=== PATIENT | male | born 1965 | race Caucasian/White ===

== ENCOUNTER → 2016-11-05 | Outpatient (CLI) | payer BC, OTHER | END | disposition home or self-care (01) | LOC: GMAM 10:49 | PROVIDERS: ATTEND Family Medicine | DX: Z12.5 Encounter for screening for malignant neoplasm of prostate (principal); Z00.00 Encounter for general adult medical examination without abnormal findings ==

== ENCOUNTER → 2017-07-09 | Outpatient (CLI) | payer BC | LOC: GMAM 10:28 | PROVIDERS: ATTEND Family Medicine | DX: E29.8 Other testicular dysfunction (principal); M10.9 Gout, unspecified ==

== ENCOUNTER 2017-09-01 19:49 | Emergency (ER) | payer BC ==
[2017-09-01 20:02] VITALS: TEMP 98.7; O2SAT 98
--- NOTE | 2017-09-01 20:11 | ED.PDOC ---
History of Present Illness - General Chief Complaint: Abdominal Pain Stated Complaint: RLQ pain since 1000 Time Seen by Provider: 09/01/17 20:08 Information Source: patient, RN notes reviewed Additional Information: 51 YEAR OLD PRESENTS WITH PAIN IN THE RSIDE OF THE ABDOMEN SINCE THIS MORNING ASSOCIATED WITH NAUSEA NO FEVER CHILLS NO DYSURIA NO HEMATURIA NO BACK PAIN - History of Present Illness Abdominal Pain Onset Location: RUQ Pain Radiation: no radiation Quality: severe, stabbing Timing/Duration: 7-24 hours, intermittent Improving Factors: nothing Worsening Factors: nothing Associated Symptoms: diarrhea, nausea/vomiting Review of Systems - Review of Systems Constitutional: States: no symptoms reported EENTM: States: no symptoms reported Respiratory: States: no symptoms reported Cardiology: States: no symptoms reported Gastrointestinal/Abdominal: States: see HPI Genitourinary: States: no symptoms reported Musculoskeletal: States: no symptoms reported Skin: States: no symptoms reported Neurological: States: no symptoms reported Endocrine: States: no symptoms reported Hematologic/Lymphatic: States: no symptoms reported Past Medical History (General) - Patient Medical History Hx Seizures: No Hx Stroke: No Hx Dementia: No Hx Asthma: Yes Hx of COPD: No Hx Cardiac Disorders: No Hx Congestive Heart Failure: No Hx Pacemaker: No Hx Hypertension: Yes Hx Thyroid Disease: No Hx Diabetes: No Hx Gastroesophageal Reflux: Yes Hx Renal Disease: No Hx Cancer: No Hx of HIV: No Hx Hepatitis C: No Hx MRSA: No Surgical History: no surgical history - Vaccination History Hx Tetanus, Diphtheria Vaccination: No Hx Influenza Vaccination: No - Social History Hx Alcohol Use: Yes - monthly Family Medical History - Family History Mother Family History: Unknown Physical Exam - Physical Exam General Appearance: Alert, Comfortable Eyes, Ears, Nose, Throat Exam: PERRL/EOMI, normal ENT inspection, TMs normal, pharynx normal Neck: non-tender, full range of motion, supple Respiratory: chest non-tender, lungs clear, normal breath sounds Cardiovascular/Chest: normal peripheral pulses, regular rate, rhythm, no edema, no gallop, no JVD Gastrointestinal/Abdominal: tenderness, other - gross obese abd difficult to feel anything deep tender on the right side Back Exam: no CVA tenderness Extremity: normal range of motion, non-tender, normal inspection Neurologic: level vial marker II-XII nml as tested, no motor/sensory deficits, alert, normal mood/affect, oriented x 3 Skin Exam: normal color, warm/dry Lymphatic: no adenopathy Progress - Results/Orders Results/Orders: Laboratory Tests 09/01/17 09/01/17 09/01/17 20:12 20:12 20:25 WBC 11.0 H RBC 4.57 L Hgb 12.4 L Hct 38.1 L MCV 83.5 MCH 27.1 MCHC 32.4 L RDW 14.4 Plt Count 291 MPV 8.1 Absolute Neuts (auto) 9.20 H Absolute Lymphs (auto) 1.00 Absolute Monos (auto) 0.60 Absolute Eos (auto) 0.10 Absolute Basos (auto) 0.00 Neutrophils % 83.9 H Lymphocytes % 9.1 L Monocytes % 5.8 Eosinophils % 0.8 L Basophils % 0.4 Sodium 138 Potassium 3.9 Chloride 105 Carbon Dioxide 25 Anion Gap 11.9 L BUN 15 Creatinine 1.16 BUN/Creatinine Ratio 12.9 Random Glucose 137 H Serum Osmolality 278.6 Calcium 8.9 Total Bilirubin 0.3 AST 31 ALT 45 Alkaline Phosphatase 72 Serum Total Protein 7.3 Albumin 3.7 Globulin 3.6 H Albumin/Globulin Ratio 1.0 L Amylase 23 L Lipase 18 L Urine Color Yellow Urine Appearance Clear Urine pH 5.5 Ur Specific [place] >= 1.030 Urine Protein 30 Urine Glucose (UA) Negative Urine Ketones 15 H Urine Blood Moderate H Urine Nitrite Negative Urine Bilirubin Negative Urine Urobilinogen 0.2 Ur Leukocyte Esterase Negative Urine RBC >50 H Urine WBC 0-1 Ur Epithelial Cells 0-[address] B[address] ABD 6 MM STONE IN THE PROXIMAL URETER CAUSING MILD HYDRONEPHROSIS Departure - Departure Clinical Impression: Abdominal pain, Ureteric calculus Time of Disposition: 21:18 Disposition: Discharge to Home or Self Care Condition: Good Departure Forms: ED Discharge - Pt. Copy, Patient Portal Self Enrollment Instructions: DI for Abdominal Pain-Adult Referrals: Jacques Whipple MD [Primary Care Provider] - 1-2 Weeks Prescriptions: Ketorolac Tromethamine [Toradol Tabs] 10 mg PO Q8HRS #15 tab Tamsulosin HCl [Flomax] 0.4 mg PO Q24HR #10 cap Promethazine Tab [Phenergan Tablet] 25 mg PO .Q4H #20 tab Home Medications: Ambulatory Orders Aspirin [Aspirin Adult Low Dose] 81 mg PO DAILY 09/01/17 Atorvastatin Calcium [Lipitor] 10 mg PO DAILY 09/01/17 Eszopiclone [Lunesta] 1 mg PO BEDTIME 09/01/17 Ferrous Sulfate [Iron] 325 mg PO DAILY 09/01/17 Ketorolac Tromethamine [Toradol Tabs] 10 mg PO Q8HRS #15 tab 09/01/17 Loperamide Cap [Imodium Cap] 2 mg PO PRN 09/01/17 Pantoprazole Tablet [Protonix] 40 mg PO ACBK 09/01/17 Probiotic Product [Probiotic] 1 tab PO DAILY 09/01/17 Promethazine Tab [Phenergan Tablet] 25 mg PO .Q4H #20 tab 09/01/17 Tamsulosin HCl [Flomax] 0.4 mg PO Q24HR #10 cap 09/01/17 Vortioxetine HBr [Brintellix] 10 mg PO DAILY 09/01/17 Additional Instructions: FAMILY WOULD LIKE TO FOLLOW UP WITH DR REYNOLDS ADVISED TO GIVE HIS OFFICE A CALL TOMORROW AM
[2017-09-01] MEDS ORDERED: KETOROLAC TROMETHAMINE INJ 30 MG/ML VIAL IV ONE (20:12)
[2017-09-01] MEDS ORDERED: SODIUM CHLORIDE 0.9% 1000ML 1,000 ML IVS ONE (20:13)
[2017-09-01 21:20] VITALS: BP 155/88
--- NOTE | 2017-09-01 21:21 | CT ---
EXAM DESCRIPTION: Abdomen/Pelvis w/Contrast CLINICAL HISTORY:51 years Male, abd pain Comparison: 04/27/2010 TECHNIQUE: Contiguous axial images of the abdomen and pelvis were obtained after administration of IV contrast followed by reconstruction images. This exam was performed according to our departmental dose-optimization program, which includes automated exposure control, adjustment of the mA and/or kV according to patient size and/or use of iterative reconstruction technique. Coronal and sagittal reconstructed images are also reviewed. FINDINGS: Lung bases: Lung bases are clear. Liver: No focal lesion Gallbladder/Bile ducts: Contracted gallbladder however intraluminal hyperdense material suggesting small gallstones/sludge. No intra or extrahepatic biliary ductal dilatation. Spleen: Within normal limits Pancreas: Within normal limits Adrenal glands: Within normal limits Kidneys: Right proximal ureteric stone measuring 6 mm with associated mild proximal hydronephrosis and right perinephric stranding. Additional 6 mm stone is seen with in the anterior-inferior pole renal calyx. Left kidney within normal limits. Bladder: Partially contracted without significant findings. No stone in the region of the right UVJ. GI tract: Moderate size hiatal hernia. No evidence of obstruction or active inflammatory process. Descending and sigmoid colonic diverticulosis. Appendix not identified. Prostate gland: Within normal limits Vascular structures: Within normal limits Free fluid: No free fluid. Lymph nodes: Nonspecific enlarged right mesenteric lymph nodes largest 1.8 cm. Additional prominent right inguinal lymph node (1.2 cm). These show interval enlargement when compared to previous study back in 04/27/2010. Soft tissues: Within normal limits Bones: No acute osseous finding Police Records Clerk view shows no additional findings. IMPRESSION: 1. Obstructing right proximal ureterolithiasis (6 mm) as above. Underlying right nephrolithiasis. 2. Moderate size hiatal hernia. 3. Cholelithiasis 4. Nonspecific enlarged right mesenteric and right inguinal lymph nodes. Although these could be reactive in etiology, a follow-up contrast-enhanced CT abdomen pelvis can be considered to assess stability as underlying malignancy is in the differential diagnosis. 5. Colonic diverticulosis. Findings were discussed by Dr. Roxy Fountain via telephone with Dr. Per Reilly on 09/01/2017 9:11 PM CDT. Electronically signed by: Columba Mccloud MD 09/01/2017 9:19 PM CDT
[2017-09-01] MEDS ORDERED: HYDROCOD/APAP 7.5/325 (ER DISP) #3 TAB PO ONE (21:33)
== END 2017-09-01 21:49 | disposition home or self-care (01) ==
LOC: ER 19:49
DX: N13.2 Hydronephrosis with renal and ureteral calculous obstruction (principal); I10 Essential (primary) hypertension; K21.9 Gastro-esophageal reflux disease without esophagitis; J45.909 Unspecified asthma, uncomplicated
CPT/HCPCS: 36415; 74177; 80053; 81001; 82150; 83690; 85025; J1885; J7030

== ENCOUNTER → 2017-10-16 | Outpatient (CLI) | payer BC ==
--- NOTE | 2017-10-16 11:03 | CT ---
EXAM DESCRIPTION: Abdomen/Pelvis w/wo Contrast: Computed Tomography. CLINICAL HISTORY: RIGHT RENAL STONE. Abdominal hernia. Right abdominal pain. COMPARISON: CT scan abdomen and pelvis without IV contrast 09/01/2017. TECHNIQUE: Spiral-axial scans at 5.0 mm intervals through the abdomen and pelvis before and after standard dose nonionic IV contrast. No oral contrast. Coronal and sagittal 2.0 mm reconstructions. 5 mm Delayed helical-axial scans, liver through the pubic symphysis. No adverse reactions. Total Exam DLP 4529.98 mGy - cm. This exam was performed according to our departmental CT dose-optimization program which includes automated exposure control, adjustment of the mA and/or kV according to patient size and/or use of iterative reconstruction technique; to reduce radiation dose to as low as reasonably achievable (ALARA). FINDINGS: Kidneys and Ureters: 6.5 mm stone which was visualized in the proximal right ureter just distal to the renal pelvis has migrated slightly more distally, now approximately 4 cm from the renal pelvis. Hydroureter and periureteral edema is visualized along with dilation of the right renal pelvis. Moderate right hydronephrosis. Stable 7.5 mm stone in the inferior collecting system of the right kidney. No other stones in the right kidney or right ureter. Right perinephric edema has resolved since the prior study. No radiodense stones in the left kidney, or ureter. No hydronephrosis or hydroureter. Pelvic Organs: No radiodense stones in the urinary bladder. Bilateral contrast ureteral jets are noted. Prostate gland not enlarged. No fluid in the anterior peritoneal reflection. Lung bases and pleura: Minimal pleural thickening left base. Small coronary artery calcification, limited view of the heart. Liver, Stomach, Spleen, Adrenal Glands: Moderate paraesophageal gastric hernia. Stable since the prior study. Solid organs are unremarkable. Pancreas, Gallbladder, Ducts: Radiodense sludge or gravel-like stones in the dependent portion of the gallbladder. Stable since the prior study. Duct and pancreas unremarkable. Mesentery: No free air or fluid. Aorta: No significant amount of contrast seen in the aorta. Normal outer caliber. Small Bowel: Normal caliber. Terminal Ileum/Cecum: Normal caliber. Possible appendiceal stump. Normal density of the surrounding fat. Colon: Diverticula of the distal colon. No obstruction or significant air-fluid levels or distention. No complications. Spine and Bony Pelvis: Minimal scoliosis of the lumbar spine. Abdominal Wall/Back Soft Tissues: Small bilateral fatty inguinal hernias not containing bowel. Diastases of the umbilicus not containing bowel. IMPRESSION: 1. Significant obstruction of the proximal right ureter by 6.5 mm radiodense stone which has moved approximately 4 cm distally since the prior study in August 2017. Moderate hydronephrosis. Only minimal contrast in the collecting system on the delayed images. Stable 7.5 mm stone in the inferior collecting system. Also minimal contrast in the urinary bladder on the delayed images. Left kidney/ureter unremarkable. 2. Remainder of examination is unremarkable. Stable paraesophageal gastric hernia and radiodense sludge or gallstone gravel in the dependent gallbladder. Minimal diverticulosis of the distal colon. Bilateral small fatty inguinal hernias and fatty diastases at the umbilicus also stable. Electronically signed by: Jd Connell MD 10/16/2017 11:02 AM CDT
== END ==
LOC: CT 08:14
PROVIDERS: ATTEND Family Medicine
DX: N20.0 Calculus of kidney (principal)

== ENCOUNTER 2017-12-04 17:52 | Emergency (ER) | payer BC ==
--- NOTE | 2017-12-04 18:14 | ED.PDOC ---
History of Present Illness - General Chief Complaint: Fever Stated Complaint: Fever, aching, urinary frequency Time Seen by Provider: 12/04/17 18:00 Source: patient - History of Present Illness Initial Comments: Blanco Martinez 52y/o male with history of recent right ureteral calculus extraction by stent ,lithotripsy,and basket extraction and had right ureteral stent for 6 days taken out 02 Dec [address] Lilly at [facility] came to ER with fever ,body aches since yesterday.Initially seen at primary Mds office but advised to come to hospital.Juan C cough,nasal congestion nausea / vomiting,diarrhea,abdominal pains but with urinary frequency,no dysuria or hematuria Timing/Duration: other - 2 days Severity: moderate Improving Factors: nothing Worsening Factors: nothing Associated Symptoms: fever/chills Allergies/Adverse Reactions: Allergies NO KNOWN ALLERGY Allergy (Verified 09/01/17 20:02) Home Medications: Ambulatory Orders Pantoprazole Tablet [Protonix] 40 mg PO ACBK 09/01/17 levoFLOXacin [Levaquin] 500 mg PO DAILY 10 Days #10 tab 12/04/17 Review of Systems - Review of Systems Constitutional: States: fever EENTM: States: no symptoms reported Respiratory: States: no symptoms reported Cardiology: States: no symptoms reported Gastrointestinal/Abdominal: States: no symptoms reported Genitourinary: States: see HPI Musculoskeletal: States: no symptoms reported Skin: States: no symptoms reported Neurological: States: no symptoms reported Past Medical History (General) - Patient Medical History Hx Seizures: No Hx Stroke: No Hx Dementia: No Hx Asthma: Yes Hx of COPD: No Hx Cardiac Disorders: No Hx Congestive Heart Failure: No Hx Pacemaker: No Hx Hypertension: Yes Hx Thyroid Disease: No Hx Diabetes: No Hx Gastroesophageal Reflux: Yes Hx Renal Disease: No Hx Cancer: No Hx of HIV: No Hx Hepatitis C: No Hx MRSA: No Surgical History: other - lithotripsy,ureteral stent - Vaccination History Hx Tetanus, Diphtheria Vaccination: No Hx Influenza Vaccination: Yes - 2017 Hx Pneumococcal Vaccination: Yes - 2017 - Social History Hx Tobacco Use: No Hx Alcohol Use: Yes - social use Family Medical History - Family History Mother Family History: Unknown Hx Cardiac Disease: Yes - mom Hx Family;Other: kidney stone- brother Physical Exam - Physical Exam General Appearance: Alert, Comfortable, No apparent distress Eye Exam: bilateral normal Ears, Nose, Throat: hearing grossly normal, normal ENT inspection, normal pharynx Neck: non-tender, full range of motion, supple Respiratory: chest non-tender, lungs clear, normal breath sounds, no respiratory distress Cardiovascular/Chest: normal peripheral pulses, regular rate, rhythm, no murmur Peripheral Pulses: radial,right: 2+, radial,left: 2+ Gastrointestinal/Abdominal: normal bowel sounds, non tender, soft Back Exam: no CVA tenderness, no vertebral tenderness Extremity: normal range of motion, non-tender Neurologic: alert, oriented x 3 Skin Exam: normal color, warm/dry Progress - Progress Progress: 12/04/17 20:29 Vital Signs - 8 hr 12/04/17 18:00 Temperature 101.2 F H Pulse Rate [ 98 H Right Radial] Respiratory 22 Rate Blood Pressure 131/81 [Right Arm] O2 Sat by Pulse 98 Oximetry 12/04/17 22:04 Temperature-99.3 - Results/Orders Results/Orders: Laboratory Tests 12/04/17 12/04/17 12/04/17 18:34 18:34 18:34 WBC 8.9 RBC 4.90 Hgb 12.4 L Hct 39.3 L MCV 80.1 MCH 25.3 L MCHC 31.5 L RDW 16.2 H Plt Count 272 MPV 9.1 Absolute Neuts (auto) 6.90 H Absolute Lymphs (auto) 1.10 Absolute Monos (auto) 0.80 Absolute Eos (auto) 0.00 Absolute Basos (auto) 0.00 Neutrophils % 77.0 Lymphocytes % 12.7 L Monocytes % 9.5 H Eosinophils % 0.2 L Basophils % 0.6 Sodium 134 L Potassium 3.8 Chloride 99 L Carbon Dioxide 26 Anion Gap 12.8 BUN 12 Creatinine 0.81 BUN/Creatinine Ratio 14.8 Random Glucose 106 H Serum Osmolality 268.4 L Lactic Acid 1.2 Calcium 9.1 Total Bilirubin 0.8 AST 17 ALT 18 Alkaline Phosphatase 77 B-Natriuretic Peptide Serum Total Protein 8.0 Albumin 4.0 Globulin 4.0 H Albumin/Globulin Ratio 1.0 L Urine Color Urine Appearance Urine pH Ur Specific [place] Urine Protein Urine Glucose (UA) Urine Ketones Urine Blood Urine Nitrite Urine Bilirubin Urine Urobilinogen Ur Leukocyte Esterase Urine RBC Urine WBC Ur Epithelial Cells Urine Bacteria 12/04/17 12/04/17 19:00 19:14 WBC RBC Hgb Hct MCV MCH MCHC RDW Plt Count MPV Absolute Neuts (auto) Absolute Lymphs (auto) Absolute Monos (auto) Absolute Eos (auto) Absolute Basos (auto) Neutrophils % Lymphocytes % Monocytes % Eosinophils % Basophils % Sodium Potassium Chloride Carbon Dioxide Anion Gap BUN Creatinine BUN/Creatinine Ratio Random Glucose Serum Osmolality Lactic Acid Calcium Total Bilirubin AST ALT Alkaline Phosphatase B-Natriuretic Peptide 90.3 Serum Total Protein Albumin Globulin Albumin/Globulin Ratio Urine Color Green Urine Appearance Clear Urine pH 6.0 Ur Specific [place] 1.020 Urine Protein 30 Urine Glucose (UA) Negative Urine Ketones Negative Urine Blood Small H Urine Nitrite Negative Urine Bilirubin Small H Urine Urobilinogen 0.2 Ur Leukocyte Esterase Trace H Urine RBC 1-3 Urine WBC 20-30 H Ur Epithelial Cells 1-3 Urine Bacteria Rare Discuss all test result with patient no remaining right ureteral stone but has right kidney stone lower pole with mild pyelonephritis ;discuss oupatient treatment with oral antibiotics since no nausea/vomiting agreeable with the plan and advise to come back if symptoms worsen or unable to tolerate oral antibiotics - EKG/XRAY/CT XRAY: chest - possible consolidation lung bases;not showing on CT abd/pelvis w/ c showed scarring/atelectasis CT Ordered: Yes - abd/pelvis-mild perinephric stranding right Departure - Departure Clinical Impression: Pyelonephritis, unspecified, Right nephrolithiasis Time of Disposition: 22:06 Disposition: Discharge to Home or Self Care Condition: Fair Departure Forms: ED Discharge - Pt. Copy, Patient Portal Self Enrollment Instructions: Kidney Infection, Kidney Infection (DC) Diet: other - drink extra fluids Referrals: Jacques Whipple MD [Primary Care Provider] - 1-2 Weeks Prescriptions: levoFLOXacin [Levaquin] 500 mg PO DAILY 10 Days #10 tab Home Medications: Ambulatory Orders Pantoprazole Tablet [Protonix] 40 mg PO ACBK 09/01/17 levoFLOXacin [Levaquin] 500 mg PO DAILY 10 Days #10 tab 12/04/17 Additional Instructions: Return to ER as needed;Tylenol 500 mg every 6 hours for fever
[2017-12-04] MEDS ORDERED: LACTATED RINGERS 1,000 ML IVS ONE (18:15)
--- NOTE | 2017-12-04 18:41 | RAD ---
EXAM DESCRIPTION: Chest,1 View CLINICAL HISTORY: fever COMPARISON: None. FINDINGS: There is mild pulmonary edema. Cardiac silhouette is within normal limits. There is possible consolidation at the medial lung bases. Detail is limited. IMPRESSION: Possible consolidation at the lung bases. Mild pulmonary edema. Electronically signed by: Jd Parekh 12/04/2017 6:40 PM CDT
[2017-12-04] MEDS ORDERED: levoFLOXacin 750MG IV 750 MG in PREMIX BAG 1 BAG IVPB ONE (19:47)
--- NOTE | 2017-12-04 20:22 | CT ---
EXAM DESCRIPTION: Abdoment/Pelvis w/o Contrast CLINICAL HISTORY: 52 years Male s/p ureteral stent, fever ,hx -rt. ureteral calculus COMPARISON: 10/16/2017. TECHNIQUE: Contiguous axial images obtained through the abdomen and pelvis without IV contrast. Reformatted images obtained. This exam was performed according to our department optimization program which includes automated exposure control, adjustment of the mA and/or kv according to patient size and/or use of iterative reconstruction technique. FINDINGS: Moderate to large hiatal hernia. Minimal scarring/atelectasis in the lingula. The liver is enlarged measuring 21 cm in length. The spleen and pancreas appear unremarkable. No adrenal masses. Nonobstructing calculus in the lower right kidney. The previously visualized hydronephrosis with a calculus in the right upper ureter is no longer identified. There is minimal right perinephric stranding which appears slightly increased compared to the previous study and the possibility of pyelonephritis is not excluded on this study. Clinical and laboratory correlation recommended. The left kidney appears unremarkable. Gallstones in the gallbladder. No aneurysmal dilatation of the aorta. No bowel obstruction. The appendix appears unremarkable. Colonic diverticulosis. No free pelvic fluid. Slightly prominent lymph node in the right upper groin which appeared similar on the previous study. Degenerative changes in the spine. IMPRESSION: The previously visualized right-sided hydronephrosis with a calculus in the right upper ureter is no longer identified. There is minimal right perinephric stranding which appears slightly increased compared to the previous study and clinical and laboratory correlation is recommended to exclude the possibility of pyelonephritis. Nonobstructing calculus in the lower right kidney. Cholelithiasis. See above for other findings. Electronically signed by: Yosvany Ann MD 12/04/2017 8:20 PM CDT
[2017-12-04] MEDS ORDERED: KETOROLAC TROMETHAMINE INJ 30 MG/ML VIAL IV ONE (20:31)
[2017-12-04] MEDS ORDERED: ACETAMINOPHEN 325 MG TAB PO ONE (20:34)
[2017-12-04] MEDS ORDERED: ACETAMINOPHEN 325 MG TAB ONE (20:35)
[2017-12-04 22:48] VITALS: BP 124/82; TEMP 100.9; O2SAT 100
== END 2017-12-04 22:20 | disposition home or self-care (01) ==
LOC: ER 17:52
DX: N12 Tubulo-interstitial nephritis, not specified as acute or chronic (principal); N13.2 Hydronephrosis with renal and ureteral calculous obstruction; K80.20 Calculus of gallbladder without cholecystitis without obstruction; K57.30 Diverticulosis of large intestine without perforation or abscess without bleeding; K44.9 Diaphragmatic hernia without obstruction or gangrene; K21.9 Gastro-esophageal reflux disease without esophagitis; J45.909 Unspecified asthma, uncomplicated; I10 Essential (primary) hypertension; Z79.899 Other long term (current) drug therapy
CPT/HCPCS: 36415; 71045; 74176; 80053; 81001; 83605; 83880; 85025; 87086; J1885; J1956; J7120

== ENCOUNTER → 2017-12-04 | Outpatient (CLI) | payer BC | LOC: GMATM 17:18 | PROVIDERS: ATTEND Nurse Practitioner Family | DX: R30.0 Dysuria (principal) ==

== ENCOUNTER → 2018-03-21 | Outpatient (CLI) | payer BC | LOC: GMAM 10:49 | PROVIDERS: ATTEND Family Medicine | DX: M10.9 Gout, unspecified (principal); Z12.5 Encounter for screening for malignant neoplasm of prostate ==

== ENCOUNTER → 2018-03-25 | Outpatient (CLI) | payer BC | LOC: GMAM 15:08 | PROVIDERS: ATTEND Family Medicine | DX: D64.9 Anemia, unspecified (principal) ==

== ENCOUNTER → 2018-04-23 | Outpatient (CLI) | payer BC | LOC: GMAM 10:39 | PROVIDERS: ATTEND Family Medicine | DX: D64.9 Anemia, unspecified (principal) ==

== ENCOUNTER → 2018-08-08 | Outpatient (CLI) | payer BC | DX: Z01.818 Encounter for other preprocedural examination (principal) ==

== ENCOUNTER 2018-08-13 05:37 | Day surgery (SDC) | payer BC ==
[2018-08-13] MEDS ORDERED: ceFAZolin SODIUM 1 GM VIAL ONE ×3 (07:27→10:52)
[2018-08-13] MEDS ORDERED: LACTATED RINGERS 1,000 ML ONE (07:27)
[2018-08-13] MEDS ORDERED: SODIUM CHL 0.9% 100ML MINI-BAG 100 ML IVPB ONE (07:27)
[2018-08-13] MEDS ORDERED: VANCOMYCIN HCL INJ 1,000 MG VIAL IVPB ONE (09:15)
[2018-08-13] MEDS ORDERED: BUPIVACAINE LIPOSOME 13.3 MG/ML VIAL INJ ONE (09:15)
[2018-08-13] MEDS ORDERED: LACTATED RINGERS 1,000 ML IVS ONE (09:45)
[2018-08-13] MEDS ORDERED: DEXAMETHASONE INJ 10 MG/ML VIAL IV ONE (10:00)
[2018-08-13] MEDS ORDERED: ONDANSETRON INJ 4 MG/2 ML VIAL IV ONE ×2 (10:00)
[2018-08-13] MEDS ORDERED: LIDOCAINE 1% 10 ML VIAL INJ ONE (10:00)
[2018-08-13] MEDS ORDERED: KETOROLAC TROMETHAMINE INJ 30 MG/ML VIAL IV ONE (10:00)
[2018-08-13] MEDS ORDERED: PROPOFOL 200 MG/20 ML VIAL IV ONE (10:00)
[2018-08-13] MEDS ORDERED: fentaNYL CITRATE INJ 50 MCG/ML AMP IV ONE (10:00)
[2018-08-13] MEDS ORDERED: MIDAZOLAM INJ 2 MG/2 ML VIAL IV ONE (10:00)
[2018-08-13] MEDS: BUPIVACAINE 0.5% 30 ML VIAL INJ ONE ×2 (10:10→11:11)
[2018-08-13] MEDS ORDERED: HYDROcodone 5MG/APAP 325MG 1 EA TAB ONE (12:39)
[2018-08-13 13:30] VITALS: BP 180/93; TEMP 97.6; O2SAT 96
--- NOTE | 2018-08-14 08:55 | OP ---
DATE OF PROCEDURE: 08/13/18 PREOPERATIVE DIAGNOSIS: 1. Meniscus tear of the left knee. POSTOPERATIVE DIAGNOSIS: 1. Meniscus tear of the left knee. 2. Osteoarthritis. PROCEDURE: 1. Partial meniscectomy. 2. Debridement. SURGEON: David Montgomery MD. CLAIMS ADJUSTER SUPERVISOR: Jd Mckinley CST, SA-C. ANESTHESIA: General anesthesia. COMPLICATIONS: None. FINDINGS: 1. Extensive degenerative changes of the medial compartment. 2. Flap tear involving the posterior body and horn of the medial meniscus, however, the meniscal root remained attached. 3. Normal ACL, normal PCL. 4. Extensive detached of the lateral compartment. 5. Normal lateral gutter. 6. Normal suprapatellar pouch. 7. Grade 3 to 4 cartilaginous changes of the patellofemoral joint. 8. Normal medial gutter. INDICATION: Mr. Martinez is a gentleman who came into the clinic with complaints of both pain and locking of the knee. Because of his mechanical symptoms, I talked to him about the problems with diagnosis. He and I talked about options and after discussing the risks, benefits and alternatives to operative therapy for partial meniscectomy, the patient has given informed consent. PROCEDURE: The patient was brought to the Operating Room and placed in supine position. General anesthesia was induced and the patient's leg was sterilely prepped and draped. Following prepping and draping, standard anteromedial and anterolateral portals were established. Diagnostic arthroscopy was carried out with the above findings. Following diagnostic arthroscopy, both the medial and lateral compartments were debrided and the cartilaginous surfaces were thoroughly probed to ensure no unstable fragments. Attention was then focused on the meniscus and it was thoroughly probed. The flap tear was exposed. Using a combination of arthroscopic biters and meniscotome, a partial meniscectomy was performed. Following that, the meniscus was thoroughly probed throughout its length to ensure there were no unstable fragments. The knee was thoroughly irrigated and drained. The wounds were closed with Nylon suture. Sterile dressings were placed. The patient was awoken from anesthesia and taken to Recovery. POSTOPERATIVE PLAN: The patient will be partial weightbearing and will followup with us in two days. #[id number] MTDD
== END 2018-08-13 13:10 | disposition home or self-care (01) ==
LOC: AMB 05:37
PROVIDERS: ATTEND Orthopaedic Surgery
DX: M23.204 Derangement of unspecified medial meniscus due to old tear or injury, left knee (principal); M23.201 Derangement of unspecified lateral meniscus due to old tear or injury, left knee; Z79.899 Other long term (current) drug therapy
CPT/HCPCS: 01400; 29881; 80307; J0690; J1100; J1885; J2250; J2405; J3010; J3370; J3490; J7050; J7120

== ENCOUNTER → 2018-09-10 | Outpatient (CLI) | payer BC | LOC: GMAM 16:37 | PROVIDERS: ATTEND Family Medicine | DX: D51.0 Vitamin B12 deficiency anemia due to intrinsic factor deficiency (principal) ==

== ENCOUNTER → 2018-12-01 | Outpatient (CLI) | payer BC | LOC: GMAM 11:58 | PROVIDERS: ATTEND Family Medicine | DX: M25.552 Pain in left hip (principal); D51.0 Vitamin B12 deficiency anemia due to intrinsic factor deficiency; M10.9 Gout, unspecified; I10 Essential (primary) hypertension; R73.09 Other abnormal glucose ==

== ENCOUNTER → 2019-09-17 | Outpatient (CLI) | payer BC | LOC: GMAM 17:00 | PROVIDERS: ATTEND Family Medicine | DX: D51.0 Vitamin B12 deficiency anemia due to intrinsic factor deficiency (principal); I10 Essential (primary) hypertension; E78.2 Mixed hyperlipidemia; M10.9 Gout, unspecified ==